=== PATIENT | male | born 2000 | race Two or more races ===

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

== ENCOUNTER 2021-07-20 20:21 | Emergency (ER) | payer OTHER ==
[2021-07-20 20:31] VITALS: BP 126/71; PULSE 108; TEMP 98; BMI 25.8
[2021-07-20] MEDS ORDERED: IBUPROFEN 600 MG TABLET (FP) PO ONE ×2 (21:20→21:22)
== END 2021-07-20 21:37 | disposition home or self-care (01) ==
LOC: JER 20:21
DX: S93.401A Sprain of unspecified ligament of right ankle, initial encounter (principal); X50.9XXA Other and unspecified overexertion or strenuous movements or postures, initial encounter
CPT/HCPCS: 73610-TC-RT-FY; 73630-TC-RT-FY; 99283-25

== ENCOUNTER 2022-10-14 17:10 | Emergency (ER) | payer OTHER ==
[2022-10-14 17:16] VITALS: BP 123/79; PULSE 68; RESP 18; TEMP 99; BMI 27.4
== END 2022-10-14 18:22 | disposition home or self-care (01) ==
LOC: JERFT 17:10
PROC: 0HQ1XZZ Repair Face Skin, External Approach (ICD-10-PCS; principal; 2022-10-14)
DX: S01.111A Laceration without foreign body of right eyelid and periocular area, initial encounter (principal); W50.0XXA Accidental hit or strike by another person, initial encounter; Y93.67 Activity, basketball
CPT/HCPCS: 99283-25

== ENCOUNTER 2022-10-21 15:10 | Emergency (ER) | payer OTHER ==
[2022-10-21 15:18] VITALS: BP 106/64; PULSE 70; RESP 18; TEMP 98.4; BMI 27.4
== END 2022-10-21 16:11 | disposition home or self-care (01) ==
LOC: JERFT 15:10
DX: Z48.02 Encounter for removal of sutures (principal)
CPT/HCPCS: 99281-25